=== PATIENT | male | born 1970 | race Caucasian/White ===

== ENCOUNTER 2018-08-21 05:22 | Day surgery (SDC) | payer BC, OTHER ==
[~2018-08-21] VITALS: Ht 175.3 cm; Wt 66.7 kg
--- NOTE | ~2018-08-21 | O ---
[facility] [place] [address] OPERATIVE REPORT Name: RICHIE MUSA [facility]: [facility] [id number] Admission: 08/21/18 Attend Phys: Fortunato Caldera Discharge: 08/21/18 Date of : 70 Report #: [id number] THIS REPORT FOR: //name// CC: Kirt Barrera PREOPERATIVE DIAGNOSES: Right shoulder pain, rotator cuff tear, impingement syndrome, biceps tendinopathy. POSTOPERATIVE DIAGNOSES: Right shoulder rotator cuff tear, large, complex labral tear, long head of the biceps tendon tear and subluxation, glenohumeral joint chondromalacia, subacromial bursitis and impingement syndrome. PROCEDURE PERFORMED: Right shoulder arthroscopy, repair of large rotator cuff tear, arthroscopic biceps tenodesis, subacromial decompression, extensive debridement. SURGEON: Fortunato Barrera MD [employer] ATTENDANT: Mellissa Davila PA-C ANESTHESIA: General with preoperative ultrasound-guided interscalene block. FLUIDS: Approximately 700 mL crystalloid. ESTIMATED BLOOD LOSS: Negligible. DESCRIPTION OF PROCEDURE: After proper identification of the patient and operative site in preoperative holding area, the operative site was signed by myself. Prophylactic antibiotics given. The patient elected to receive an interscalene block after reviewing the risks, benefits, alternatives and potential complications with anesthesia. After a satisfactory block, the patient was brought back to the operative suite after induction of satisfactory general anesthesia per endotracheal tube. He was carefully positioned in left lateral decubitus position after the right shoulder that had been examined. It was stable throughout a full arc of motion comparable to the preoperative assessment. Beanbag and axillary roll were utilized and the right shoulder was sterilely prepped and draped in usual manner and placed in 10 pounds of balanced arthroscopic suspension. Posterior portal was established, joint was inflated with an arthroscopic pump set at 40 mmHg. Anterior superior portal was created using a spinal needle for localization. Examination of the glenohumeral joint revealed long head of the biceps tendon tear and subluxation. Upper border tear of the subscapularis was noted. Complex labral fraying and tearing was noted at the anterior, superior and posterior superior quadrants. This area was carefully debrided. Mild chondral thinning and fibrillation was noted on the humeral head superiorly. Minimal intra-articular synovitis was noted. A full thickness retracted tear of the supraspinatus was also appreciated. [address] [address] OPERATIVE REPORT Name: RICHIE MUSA Room #: [facility] Dilan#: [id number] Admission: 08/21/18 Attend Phys: Fortunato Caldera Discharge: 08/21/18 Date of : 70 Report #: [id number] the biceps tendon was grasped with a tendon grasping stitch released off the superior labrum and remaining area was carefully debrided. An additional anterior inferior portal was created. Lesser tuberosity was freed from the soft tissues and the upper border of the subscapularis was repaired with FiberTape passed in a simple manner, secured with 4.75 mm SwiveLock anchor. This nicely restored the upper border tear. Arthroscope was introduced in the subacromial space where very thickened subacromial bursa was encountered. Combination of hand and motorized instrumentation was used to resect the bursa. There was fraying in the undersurface of the coracoacromial arch. Prominence of the CA ligament was released but not resected off the anterolateral acromion and prominence to the acromion was removed using motorized bur. The anterolateral clavicle was carefully decompressed with bur, approximately 4 mm of bone was resected in this area. There was a retracted more L-shaped tear of the supraspinatus. This was a complete supraspinatus tear measuring just over a couple of centimeters. This appeared to be best repaired with more anterior translation of this tissue. Lesser tuberosity was prepared with combination of hand and motorized instrumentation. A triple-loaded anchor using two #2 FiberWires and #1 FiberTape was utilized to repair this in a manner of the tear that did not really appear to be room for 2 anchors. Sutures were passed in horizontal mattress fashion. The sutures were tied and then additional lateral row fixation was utilized with an additional SwiveLock anchor creating a double row construct. This nicely reduced the tear. Through separate anterior lateral portal, the biceps was delivered. Whipstitch was applied. Frayed portion of the tendon was debrided and in the bicipital groove using a proximal biceps tenodesis button through predrilled hole, the biceps was tenodesed to this. It nicely fit within the joint. Frayed portion of the tendon had been debrided. It was secured. Subacromial space thoroughly irrigated with normal saline. Portals closed with simple nylon stitch. Sterile dressing was applied. The patient was awakened and transferred to the recovery room in stable condition. The patient will be immobilized in a sling for 6 weeks postoperatively. No external rotation beyond neutral. Qualified or first assist registered nurse utilized throughout the entire procedure to aid in patient limb positioning, visualization with the arthroscope instrument and suture passage as well as closure and sling application. By: 1020 [id number] Fortunato Barrera MD /nt
[~2018-08-21 05:22] MED LIST: ACARBOSE100 MG PO; ACTOS 45 MG45 M2 PO; ACTOS15 MG PO; ALPHA LIPOIC A200 MG PO; AMARYL4 MG PO; AMOXICILLIN/POTASSIU; BYDUREON B2 MG/0.85 SUBQ; BYETTA PEN 11 PENINJ SC; CINNAMON PLUS1 EACH PO; CLARITIN-D 12 H1 TA1 PO; DECONGESTANT NA15 ML; EXPECTORANT200 MG PO; FISH OIL 1,0001 EAC5 PO; FISH OIL 1,001000 M2 PO; FISH OIL SOFTG1 EACH PO; GLUMETZA1000 PO; HYDROCODON-ACE1 EA10 PO; INVOKANA300 MG PO; KOMBIGLYZE XR1 EAC2 PO; LIPITOR 20 MG T20 M1 PO; NASACORT10.8 ML NASAL; PEN NEEDLE1 EAC6; PROVENTIL HFA6.7 G1 INH; SIMVASTATIN40 MG PO; [UNRECOGNIZED DRUG - OTHER] PO; [UNRECOGNIZED DRUG - OTHER] PO
[2018-08-21 07:49] VITALS: BP 118/61
--- NOTE | 2018-08-21 08:54 | EKG ---
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 08/21/18 [phone] Philippe Cox MD, FACC /EPI
[2018-08-21 10:42] VITALS: BP 118/61
== END 2018-08-21 11:38 | disposition home or self-care (01) ==
LOC: OR 05:22 → TBA 05:23 → OR 09:44
DX: M75.101 Unspecified rotator cuff tear or rupture of right shoulder, not specified as traumatic (principal); S43.491A Other sprain of right shoulder joint, initial encounter; S46.111A Strain of muscle, fascia and tendon of long head of biceps, right arm, initial encounter; M94.211 Chondromalacia, right shoulder; M75.51 Bursitis of right shoulder; M75.41 Impingement syndrome of right shoulder; E11.9 Type 2 diabetes mellitus without complications; E78.5 Hyperlipidemia, unspecified; F17.210 Nicotine dependence, cigarettes, uncomplicated; Z98.890 Other specified postprocedural states; Z79.899 Other long term (current) drug therapy; X58.XXXA Exposure to other specified factors, initial encounter; Y93.89 Activity, other specified; Y92.89 Other specified places as the place of occurrence of the external cause; Y99.8 Other external cause status
CPT/HCPCS: 50010; 50101; 50172; 50386; 50417; 50935; 50950; 51038; 51445; 51847; 53610; 54170; 55430; 56527; 56530; 57103; 62110; 62900; 64039; 70005